=== PATIENT | male | born 1970 | race Caucasian/White ===

== ENCOUNTER 2018-01-01 10:41 | Emergency (ER) | payer MEDICAID ==
[2018-01-01 12:54] LABS: ADD UMIC NO; UR ASCORBIC ACID NEGATIVE (NEGATIVE); UR BILIRUBIN (Dip) NEGATIVE (NEGATIVE); UR BLOOD (Dip) NEGATIVE (NEGATIVE); UR CLARITY CLEAR (CLEAR); UR COLOR YELLOW (YELLOW); UR GLUCOSE (Dip) NEGATIVE (NEGATIVE); UR KETONES (Dip) NEGATIVE (NEGATIVE); UR LEUKOCYTE ESTERASE (Dip) NEGATIVE Leu/ul (NEGATIVE); UR NITRITE (Dip) NEGATIVE (NEGATIVE); UR TOTAL PROTEIN (Dip) NEGATIVE (NEGATIVE); UR UROBILINOGEN (Dip) NEGATIVE (NEGATIVE)
[2018-01-01] MEDS: KETOROLAC 30 MG INJ IM (13:21)
== END 2018-01-01 13:23 | disposition home or self-care (01) ==
LOC: FTE 10:41
DX: S06.0X0A Concussion without loss of consciousness, initial encounter (principal); S20.229A Contusion of unspecified back wall of thorax, initial encounter; M62.830 Muscle spasm of back; R42 Dizziness and giddiness; W22.8XXA Striking against or struck by other objects, initial encounter; Y92.9 Unspecified place or not applicable
CPT/HCPCS: 70450; 72040; 72100; 81003; 99284-25